=== PATIENT | male | born 1990 | race Caucasian/White ===

== ENCOUNTER 2017-02-08 14:10 | Emergency (ER) | payer MEDICAID ==
[2017-02-08 14:30] VITALS: BP 123/89; PULSE 70; RESP 16; TEMP 98.6; O2SAT 96
--- NOTE | 2017-02-08 15:25 | UCPHY ---
H & P Time Seen by Provider: 02/08/17 14:55 Patient Type: Established HPI/ROS: CHIEF COMPLAINT: Scrotal swelling HISTORY OF PRESENT ILLNESS: 26-year-old male presents reporting tenderness, swelling, and some bruising located on the right hemiscrotum. Symptoms have been present for 4 days. No direct trauma. Patient wonders if this may be related to wearing tight pants when he was skateboarding. He denies any specific scrotal, testicular, or penile trauma. No hematuria. No dysuria. He does report that he has had chronic penile discharge for months, and was told by his primary care physician this was normal. No new sexual partners. Patient states that he has had no sexual intercourse for year. Scrotal discomfort is worse when standing. Denies hematuria. No fever, chills, chest pain, shortness of breath, palpitations, vomiting, diarrhea, urinary complaints, headache, lightheadedness. REVIEW OF SYSTEMS: Aside from elements discussed in the HPI, a comprehensive 10-point review of systems was reviewed and is negative. PAST MEDICAL HISTORY: Asthma. SOCIAL HISTORY: Smoker. VITAL SIGNS: see nurse's notes. GENERAL: Well-developed, well-nourished, in no acute distress. HEENT: Normal, no discharge or icterus, moist mucous membranes. Neck: supple, FROM. LUNGS: Clear to auscultation. CARDIAC: Regular rate and rhythm, no rubs, murmurs or gallops. ABDOMEN: Soft, no suprapubic tenderness. No distension. Normal bowel sounds. : Penis is normal. No penile discharge. No lesions. Left testicle nontender. Right testicle very minimally tender with maximal tenderness posteriorly. Right hemiscrotum slightly ecchymotic. No significant tenderness. BACK: No CVA tenderness. No vertebral tenderness. EXTREMITIES: No edema, FROM. NEURO: Alert and oriented, grossly nonfocal. SKIN: Warm and dry, no rash. Smoking Status: Current every day smoker Constitutional: Initial Vital Signs Temperature (C) 37 C 02/08/17 14:27 Heart Rate 70 02/08/17 14:27 Respiratory Rate 16 02/08/17 14:27 Blood Pressure 123/89 H 02/08/17 14:27 O2 Sat (%) 96 02/08/17 14:27 O2 Delivery Mode Room Air Allergies/Adverse Reactions: No Known Allergies Allergy (Verified 02/08/17 14:27) Home Medications: Medication Instructions Recorded NK [No Known Home Meds] 08/25/14 Medical Decision Making - Diagnostics Imaging: Results: An ultrasound scan of the testes was obtained. The results of the study were reported to me: No testicular torsion, no hydrocele, no blood collection. The study was read by Dr. Ardon. I discussed the results of the study with the patient. ED Course/Re-evaluation: Advised the patient of possible contusion to the scrotum. We discussed atelectatic supporter, ibuprofen for pain, and follow up with Urology if not improving. Because of the patient's history of months of penile discharge, GC and chlamydia testing was ordered on the patient's urine. He understands the need to call and obtain those results. Differential Diagnosis: Differential diagnosis of the patient's testicular pain was considered including but not limited to epididymitis, orchitis, referred pain from kidney stone, inguinal hernia, and torsion of the testicle. - Data Points Laboratory Results: 02/08/17 02/08/17 15:35 15:35 Urine Color YELLOW Urine Appearance CLOUDY Urine pH 7.5 (5.0-7.5) Ur Specific [place] 1.010 (1.002-1.030) Urine Protein NEGATIVE (NEGATIVE) Urine Ketones NEGATIVE (NEGATIVE) Urine Blood NEGATIVE (NEGATIVE) Urine Nitrate NEGATIVE (NEGATIVE) Urine Bilirubin NEGATIVE (NEGATIVE) Urine Urobilinogen 0.2 EU EU (0.2-1.0) Ur Leukocyte Esterase NEGATIVE (NEGATIVE) Urine RBC TNP Urine WBC REJ Ur Epithelial Cells TNP Urine Glucose NEGATIVE (NEGATIVE) C.trachomatis RNA (TMA) Pending N.gonorrhoeae RNA (TMA) Pending Departure - Departure Disposition: Home, Routine, Self-Care Clinical Impression: Scrotal swelling, History of discharge from penis Condition: Good Instructions: Scrotal Pain (ED) Additional Instructions: For your scrotal pain, I suggest that you obtain an athletic support strap. Please take ibuprofen 400-600 mg 3 times a day for pain. Limit your activities for the next several days so you are not standing on your feet or skateboarding for hours at a time. We have checked your urine for infection or sexually transmitted diseases. Please call back in 24-36 hours for the results of these tests. Please follow up with [facility] if you're not improving as expected or if you are worse. Referrals: NONE *PRIMARY CARE P,. [Primary Care Provider] - As per Instructions - PQRS PQRS Measurement: Not applicable
[2017-02-08 15:41] LABS: LEUKOCYTE ESTERASE,URINE NEGATIVE (NEGATIVE); NITRITE,URINE NEGATIVE (NEGATIVE); PH,URINE 7.5 (5.0-7.5)
[2017-02-08 15:42] LABS: COLOR YELLOW
[2017-02-09 15:04] LABS: CHLAMYDIA AMPLIFICATION GENPRB NEGATIVE (NEGATIVE)
== END 2017-02-08 15:39 | disposition home or self-care (01) ==
LOC: CED 14:10
DX: N50.89 Other specified disorders of the male genital organs (principal)
CPT/HCPCS: 76870-PO; 81003-PO; 81015-PO; 99214-PO; G0463-PO

== ENCOUNTER 2017-09-06 17:18 | Emergency (ER) | payer MEDICAID ==
[2017-09-06 17:33] VITALS: BP 111/67; PULSE 80; RESP 16; TEMP 98.1; O2SAT 97
--- NOTE | 2017-09-06 17:34 | EDPHY ---
H & P Time Seen by Provider: 09/06/17 17:29 HPI/ROS: CHIEF COMPLAINT: Right ankle pain HISTORY OF PRESENT ILLNESS: The patient is a 26-year-old man who states that he was sitting on the edge of his friends roof 2 days ago when he jumped off of the roof onto a rock. He states that was only about a 2-3 foot drop. He twisted his foot and has pain over the lateral ankle. He has been ambulatory can even ride his skateboard. He has minimal swelling. REVIEW OF SYSTEMS: Constitutional: denies: chills, fever, recent illness, recent injury EENTM: denies: blurred vision, double vision, nose congestion Respiratory: denies: cough, shortness of breath Cardiac: denies: chest pain, irregular heart rate, lightheadedness, palpitations Gastrointestinal/Abdominal: denies: abdominal pain, diarrhea, nausea, vomiting, blood streaked stools Genitourinary: denies: dysuria, frequency, hematuria, pain Musculoskeletal: See HPI Skin: denies: lesions, rash, jaundice, bruising Neurological: denies: headache, numbness, paresthesia, tingling, dizziness, weakness Hematologic/Lymphatic: denies: blood clots, easy bleeding, easy bruising Immunologic/allergic: denies: HIV/AIDS, transplant EXAM: GENERAL: Well-appearing, well-nourished and in no acute distress. HEAD: Atraumatic, normocephalic. EYES: Pupils equal round and reactive to light, extraocular movements intact, sclera anicteric, conjunctiva are normal. ENT: TMs normal, nares patent, oropharynx clear without exudates. Moist mucous membranes. NECK: Normal range of motion, supple without lymphadenopathy or JVD. LUNGS: Breath sounds clear to auscultation bilaterally and equal. No wheezes rales or rhonchi. HEART: Regular rate and rhythm without murmurs, rubs or gallops. ABDOMEN: Soft, nontender, normoactive bowel sounds. No guarding, no rebound. No masses appreciated. BACK: No CVA tenderness, no spinal tenderness, step-offs or deformities EXTREMITIES: The patient has minimal amount of swelling just below the lateral malleolus of his right ankle. No tenderness. No deformity. No bony tenderness. Ambulatory without difficulty. Normal pulses and sensation. NEUROLOGICAL: Cranial nerves II through XII grossly intact. Normal speech, normal gait. 5/5 strength, normal movement in all extremities, normal sensation PSYCH: Normal mood, normal affect. SKIN: Warm, dry, normal turgor, no visible rashes or lesions. Source: Patient Exam Limitations: No limitations - Personal History Tetanus Vaccine Date: WITHIN 10 YRS - Medical/Surgical History Hx Asthma: No Hx Chronic Respiratory Disease: No Hx Diabetes: No Hx Cardiac Disease: No Hx Renal Disease: No Hx Cirrhosis: No Hx Alcoholism: No Hx HIV/AIDS: No Hx Splenectomy or Spleen Trauma: No Other PMH: left elbow surgery, appendectomy, tonsillectomy, addenoidectomy - Family History Significant Family History: No pertinent family hx - Social History Smoking Status: Current every day smoker Alcohol Use: Sober Drug Use: None Constitutional: Initial Vital Signs Temperature (C) 36.7 C 09/06/17 17:20 Heart Rate 80 09/06/17 17:20 Respiratory Rate 16 09/06/17 17:20 Blood Pressure 111/67 09/06/17 17:20 O2 Sat (%) 97 09/06/17 17:20 O2 Delivery Mode Room Air Allergies/Adverse Reactions: No Known Allergies Allergy (Verified 09/06/17 17:33) Home Medications: Medication Instructions Recorded NK [No Known Home Meds] 08/25/14 Medical Decision Making - Diagnostics Imaging Results: Imaging Impressions Ankle X-Ray 09/06/17 17:32 Impression: No acute injury identified. Possible intra-articular loose bodies anteriorly and within the lateral gutter. X-ray: Ankle x-ray was obtained. I viewed the images myself on the PACS system. My interpretation of the images is: Negative for fracture. The radiologist interpretation is pending. Imaging: Discussed imaging studies w/ construction equipment mechanic Radiologist ED Course/Re-evaluation: Patient has a sprained ankle clinically and no visible fractures on x-ray. He has been using the ankle quite a bit in even skateboarding. We will place her in an Nilo wrap. He declines further workup or testing. He does request a note for work. Patient does appear to have an old fracture in the joint that may be irritating the joint. This is precise agrees having pain currently. I will have him follow up with 1 of our ankle specialist. Differential Diagnosis: Partial list of the Differential diagnosis considered include but were not limited to; ankle sprain, ankle fracture and although unlikely based on the history and physical exam, I also considered dislocation, vascular injury, infection, arthritis. I discussed these differential diagnoses and the plan with the patient as well as the usual and expected course. The patient understands that the diagnosis is provisional and that in medicine we are not always correct and that further workup is often warranted. Usual and customary warnings were given. All of the patient's questions were answered. The patient was instructed to return to the emergency department should the symptoms at all worsen or return, otherwise to followup with the physician as we discussed. Departure - Departure Disposition: Home, Routine, Self-Care Clinical Impression: Sprain of right ankle Qualifiers: Encounter type: initial encounter Involved ligament of ankle: unspecified ligament Qualified Code(s): S93.401A - Sprain of unspecified ligament of right ankle, initial encounter Condition: Fair Instructions: Ankle Sprain (ED), RICE Therapy (ED) Referrals: NONE *PRIMARY CARE P,. [Primary Care Provider] - As per Instructions Murtaza Nettles MD [Medical Doctor] - As per Instructions Stand Alone Forms: Work Excuse
== END 2017-09-06 18:09 | disposition home or self-care (01) ==
LOC: CED 17:18
DX: S93.401A Sprain of unspecified ligament of right ankle, initial encounter (principal); F17.200 Nicotine dependence, unspecified, uncomplicated; X50.9XXA Other and unspecified overexertion or strenuous movements or postures, initial encounter; Y99.8 Other external cause status; Y93.39 Activity, other involving climbing, rappelling and jumping off
CPT/HCPCS: 73610-PO